=== PATIENT | male | born 1965 | race Caucasian/White ===

== ENCOUNTER 2020-08-20 10:44 | Outpatient (REF) | payer OTHER, SELFPAY ==
--- NOTE | ~2020-08-20 | XR_ITS ---
EXAMINATION: XR RIBS, RIGHT CLINICAL INFORMATION: Rib pain. COMPARISON: Chest 06/11/2008 TECHNIQUE: 3 views of the right ribs were obtained. Chest one view FINDINGS: The lungs are slightly hyperinflated but clear of acute pneumonic process. Heart size and pulmonary vascularity are within normal limits. Multiple views of right ribs reveal no visible acute fracture or bony abnormality. The soft tissues are normal. XR/XR ribs RT min 3V w [id number] IMPRESSION: Unremarkable chest and right rib exam.
== END 2020-08-20 10:45 | disposition home or self-care (01) ==
LOC: HO.XRAY 10:44
PROVIDERS: PCP Internal Medicine Medical Oncology; Visit Provider Internal Medicine Medical Oncology
DX: S22.39XA Fracture of one rib, unspecified side, initial encounter for closed fracture (principal); X58.XXXA Exposure to other specified factors, initial encounter; Y93.9 Activity, unspecified; Y92.9 Unspecified place or not applicable; Y99.9 Unspecified external cause status
CPT/HCPCS: 71101

== ENCOUNTER 2021-01-10 11:07 | Outpatient (REF) | payer OTHER, SELFPAY ==
--- NOTE | ~2021-01-10 | XR_ITS ---
EXAMINATION: XR HAND, RIGHT CLINICAL INFORMATION: Suspected foreign body at right third digit. The patient has bump at the third digit. COMPARISON: None TECHNIQUE: PA, lateral, and oblique views of the right hand. FINDINGS: Mild marginal osteophyte formation is noted predominantly along the dorsal aspect of the articular surface of the DIP joint of the third digit. A curvilinear radiopacity is present overlying the dorsal aspect of the DIP joint, likely represent soft tissue calcification and less likely to be foreign body, may represent old posttraumatic change. Note is also made of overlying soft tissue swelling, best seen on the lateral projection. XR/XR hand RT min 3V IMPRESSION: 1. 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 2. Curvilinear radiopacity seen overlying the dorsal aspect of the DIP joint with overlying soft tissue swelling is seen on the lateral projection, likely represent soft tissue calcification and less likely foreign body, may represent old posttraumatic change.
== END 2021-01-10 11:08 | disposition home or self-care (01) ==
LOC: HO.XRAY 11:07
PROVIDERS: PCP Internal Medicine Medical Oncology; Visit Provider Internal Medicine Medical Oncology
DX: M79.5 Residual foreign body in soft tissue (principal)
CPT/HCPCS: 73130

== ENCOUNTER 2021-01-21 09:00 | Outpatient (REF) | payer OTHER, SELFPAY ==
--- NOTE | ~2021-01-21 | XR_ITS ---
EXAMINATION: XR HAND, RIGHT CLINICAL INFORMATION: Pain COMPARISON: Radiographs of the right and 01/10/2021 TECHNIQUE: PA, lateral, and oblique views of the right hand. FINDINGS: There is no acute fracture or dislocation. Mild narrowing of the DIP and PIP joint spaces. Again demonstrated is a marginal osteophyte along the dorsal aspect of the DIP joint of the third digit with an adjacent amorphous/curvilinear calcification, overall similar appearance to the prior study. Unchanged mild overlying soft tissue swelling. XR/XR hand RT min 3V IMPRESSION: Mild degenerative changes, most prominent at the DIP joint of the right third digit. Stable curvilinear radiopacity over the dorsal aspect of the DIP joint, favored to represent a soft tissue calcification, which may represent sequela from prior trauma.
== END 2021-01-21 09:01 | disposition home or self-care (01) ==
LOC: HO.HOSX 09:00
PROVIDERS: Visit Provider Orthopaedic Surgery
DX: M67.441 Ganglion, right hand (principal); M19.041 Primary osteoarthritis, right hand
CPT/HCPCS: 73130

== ENCOUNTER 2021-04-01 11:50 | Outpatient (REF) | payer OTHER, SELFPAY ==
--- NOTE | ~2021-04-01 | XR_ITS ---
EXAMINATION: XR HAND, RIGHT CLINICAL INFORMATION: Pain. COMPARISON: Radiographs dated 01/21/2021 and 01/10/2021. TECHNIQUE: PA, lateral, and oblique views of the right hand. FINDINGS: Bony alignment and mineralization are normal. There is mild to moderate osteoarthritic change of the third distal interphalangeal joint. No fracture or dislocation is seen. The proximal and distal carpal rows are intact. The soft tissue planes are unremarkable, without gas or foreign body. XR/XR hand RT min 3V IMPRESSION: There is mild to moderate osteoarthritic change of the right third distal interphalangeal joint. No fracture or dislocation is seen.
== END 2021-04-01 11:51 | disposition home or self-care (01) ==
LOC: HO.HOSX 11:50
PROVIDERS: Visit Provider Orthopaedic Surgery
DX: M19.041 Primary osteoarthritis, right hand (principal); M67.441 Ganglion, right hand
CPT/HCPCS: 73130

== ENCOUNTER → 2021-04-16 12:37 | Outpatient (BNVA) | payer OTHER, SELFPAY | PROVIDERS: PCP Internal Medicine Medical Oncology; Visit Provider Orthopaedic Surgery ==

== ENCOUNTER 2021-04-21 11:55 | Day surgery (SDC) | payer OTHER, SELFPAY ==
[2021-04-21 13:01] VITALS: BMI 22.4
[2021-04-21 13:02] VITALS: BP 121/65; PULSE 38; RESP 16; TEMP 35.9; O2SAT 100
--- NOTE | 2021-04-21 15:04 | MHC.SHP ---
Pre-Procedural Eval Section A Date of Service: 04/21/21 The patient is an INPATIENT: No Changes since office visit: No Cold of Flu in the past 2 weeks, No New Medical Problems, No Changes in Medication and No Patient answered all questions The History & Physical has been completed within 30 days and I have reviewed it.: Yes Section B Chief Complaint: ganglion right hand Allergies: Allergies Allergy/AdvReac Type Severity Reaction Status Date / Time No Known Allergies Allergy Verified 04/16/21 13:04 Plan I have reviewed the history and physical and performed a pertinent physical examination on my patient. No changes have occurred unless specified.
--- NOTE | 2021-04-21 15:05 | W.PM.OPN ---
Operative Note Operative Note Date of Service: 04/21/21 Narrative: Operative Note Preop diagnosis: 1. 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 same Procedure: 1. right middle finger mucous cyst excision. Surgeon: Shona Gerard MD Anesthesia: Digital block using 1% lidocaine with epinephrine Findings: mucous cyst, filled with clear viscous fluid consistent with a ganglion he had a 3 mm diameter wound over the dorsal aspect of the distal phalanx where he has had repeated drainage from this cyst. No evidence of infection. EBL: Less than 5 mL Tourniquet time: None Specimens: None Complications: None Disposition: Brought to recovery room in stable condition Plan: I gave him a prescription for 5 days of Augmentin prophylactically, because this is a cyst that has had recurrent drainage. Follow-up for 7-10 days for wound check and suture removal Indications: The patient is 55 years old, with right middle finger D IP joint osteoarthritis and a mucous cyst that has been unresponsive to nonoperative management. The risks and benefits of operative treatment including but not limited to risk of damage to blood vessels, nerves, tendons, infection, persistent pain, persistent symptoms, recurrence or possible need for additional surgery were discussed with the patient and the patient wishes to proceed with surgery. Procedure: Once consent was obtained a digital block was performed in the preop area using a combination of 1% lidocaine with epinephrine. The patient was then brought back to the operating suite and placed on the operative table in supine position. A tourniquet was applied to the proximal aspect of the right upper extremity and the limb was prepped and draped in a standard surgical fashion. Once assured that we had a good block, an L-shaped incision was made over the dorsal aspect of the right middle finger distal phalanx. The incision was made through the skin to the subcutaneous tissues using a #15 blade. Careful dissection was made down to the level of the mucous cyst and extensor mechanism using iris scissors. The cyst was filled with clear viscous fluid consistent with a ganglion. It was dissected free from the surrounding tissues and removed from the finger. Once satisfied, the wound was copiously irrigated with normal saline and hemostasis was obtained with a brief period of local pressure. The skin edges were reapproximated with some 5.0 Prolene suture material and a sterile dressing was applied. The patient appears to have tolerated the procedure well and with no complications. All digits were well vascularized at the conclusion of the case.
[2021-04-21 15:40] VITALS: BP 133/56; PULSE 50; RESP 18; TEMP 36.8; O2SAT 100
== END 2021-04-21 15:52 | disposition home or self-care (01) ==
PROVIDERS: PCP Internal Medicine Medical Oncology; Visit Provider Orthopaedic Surgery
PROC: (CPT 26160; principal; 2021-04-21 14:10)
DX: M67.441 Ganglion, right hand (principal); M19.041 Primary osteoarthritis, right hand
CPT/HCPCS: 26160

== ENCOUNTER → 2021-05-06 09:19 | Outpatient (BNVA) | payer OTHER, SELFPAY | PROVIDERS: PCP Internal Medicine Medical Oncology; Visit Provider Orthopaedic Surgery ==

== ENCOUNTER 2022-10-09 06:21 | Outpatient (REF) | payer OTHER, SELFPAY ==
[2022-10-09 06:35] LABS: MANUAL DIFF FLAG NO
[2022-10-09 07:20] LABS: Basophils Percent Auto 0.7 % (0-2); Eosinophils Absolute Auto 0.1 X10*3/uL (0.0-0.4); Eosinophils Percent Auto 2.4 % (0-4); Hematocrit 40.9 % (42.0-52.0); Hemoglobin 13.3 g/dl (14.0-18.0); Imm Gran Abs Auto 0.01 X10*3/uL (0.00-0.03); Imm Gran Pct Auto 0.2 % (0.0-0.4); Lymphocytes Absolute Auto 2.3 X10*3/uL (1.2-4.9); Lymphocytes Percent Auto 41.6 % (20-40); Mean Corpuscular HGB Conc 32.5 g/dl (31.0-36.0); Mean Corpuscular Hemoglobin 30.6 pg (27.0-33.0); Mean Corpuscular Volume 94.2 fL (80.0-98.0); Monocytes Absolute Auto 0.6 X10*3/uL (0.1-1.2); Monocytes Percent Auto 11.1 % (2-11); Neutrophils Absolute Auto 2.4 x10*3/uL (2.0-8.3); Platelet Count 187 X10*3/uL (160-400); Red Blood Count 4.34 X10*6/uL (4.60-5.80); White Blood Count 5.5 X10*3/uL (4.8-10.8)
[2022-10-09 07:36] LABS: Alanine Aminotransferase 34 U/L (0-40); Albumin Level 4.1 g/dL (3.5-5.0); Alkaline Phosphatase 77 U/L (39-117); Anion Gap 15 (12-20); Aspartate Amino Transferase 39 U/L (5-37); Bilirubin Total 0.4 mg/dL (0.0-1.0); Blood Urea Nitrogen 36 mg/dL (9-16); Calcium 8.9 mg/dL (8.4-10.2); Carbon Dioxide 24 mmol/L (22-29); Chloride 109 mmol/L (96-108); Cholesterol 180 mg/dL; Estimated Glomerular Filt Rate > 60; Glucose Fasting 84 mg/dL (60-99); HDL Cholesterol 77 mg/dL; LDL Cholesterol Calculated 97 mg/dl; Potassium 4.2 mmol/L (3.3-5.1); Sodium 144 mmol/L (135-145); Total Protein 6.4 g/dL (6.5-8.0); Triglycerides 34 mg/dL
[2022-10-09 08:04] LABS: Prostate Specific Antigen 0.44 ng/mL (<0.05-4.0)
== END 2022-10-09 06:22 | disposition home or self-care (01) ==
LOC: HO.LAB 06:21
PROVIDERS: PCP Internal Medicine Medical Oncology; Visit Provider Internal Medicine Medical Oncology
DX: Z00.00 Encounter for general adult medical examination without abnormal findings (principal); Z12.5 Encounter for screening for malignant neoplasm of prostate; E66.3 Overweight; E78.5 Hyperlipidemia, unspecified
CPT/HCPCS: 36415; 80053; 80061; 84153; 85025

== ENCOUNTER 2024-03-27 09:12 | Outpatient (REF) | payer OTHER, SELFPAY ==
[2024-03-27 09:23] LABS: MANUAL DIFF FLAG NO
[2024-03-27 10:08] LABS: Basophils Percent Auto 0.3 % (0-2); Eosinophils Absolute Auto 0.1 X10*3/uL (0.0-0.4); Eosinophils Percent Auto 1.7 % (0-4); Hematocrit 38.9 % (42.0-52.0); Hemoglobin 12.9 g/dl (14.0-18.0); Imm Gran Abs Auto 0.01 X10*3/uL (0.00-0.03); Imm Gran Pct Auto 0.2 % (0.0-0.4); Lymphocytes Absolute Auto 1.8 X10*3/uL (1.2-4.9); Lymphocytes Percent Auto 31.5 % (20-40); Mean Corpuscular HGB Conc 33.2 g/dl (31.0-36.0); Mean Corpuscular Hemoglobin 31.1 pg (27.0-33.0); Mean Corpuscular Volume 93.7 fL (80.0-98.0); Monocytes Absolute Auto 0.5 X10*3/uL (0.1-1.2); Monocytes Percent Auto 9.2 % (2-11); Neutrophils Absolute Auto 3.3 x10*3/uL (2.0-8.3); Neutrophils Percent Auto 57.1 % (45-73); Platelet Count 189 X10*3/uL (160-400); Red Blood Count 4.15 X10*6/uL (4.60-5.80); Red Cell Distribution Width 13.1 % (11.0-16.0); White Blood Count 5.7 X10*3/uL (4.8-10.8)
[2024-03-27 10:52] LABS: Alanine Aminotransferase 31 U/L (0-40); Albumin Level 4.2 g/dL (3.5-5.0); Alkaline Phosphatase 58 U/L (39-117); Anion Gap 8 (12-20); Bilirubin Total 0.6 mg/dL (0.0-1.0); Blood Urea Nitrogen 22 mg/dL (9-16); Calcium 8.9 mg/dL (8.4-10.2); Carbon Dioxide 30 mmol/L (22-29); Chloride 108 mmol/L (96-108); Cholesterol 195 mg/dL (<200); Estimated Glomerular Filt Rate > 60; Glucose Fasting 83 mg/dL (60-99); HDL Cholesterol 69 mg/dL (>40); LDL Cholesterol Calculated 117 mg/dL (<100); Potassium 4.4 mmol/L (3.3-5.1); Sodium 142 mmol/L (135-145); Total Protein 6.7 g/dL (6.5-8.0); Triglycerides 48 mg/dL (<150)
[2024-03-27 10:56] LABS: Prostate Specific Antigen 0.55 ng/mL (<0.05-4.0)
[2024-03-27 11:06] LABS: Aspartate Amino Transferase 44 U/L (5-37)
== END 2024-03-27 09:13 | disposition home or self-care (01) ==
LOC: HO.LAB 09:12
PROVIDERS: PCP Internal Medicine Medical Oncology; Visit Provider Internal Medicine Medical Oncology
DX: Z00.00 Encounter for general adult medical examination without abnormal findings (principal); E66.3 Overweight; R35.1 Nocturia; Z12.5 Encounter for screening for malignant neoplasm of prostate
CPT/HCPCS: 36415; 80053; 80061; 84153; 85025